=== PATIENT | female | born 1975 | race Caucasian/White ===

== ENCOUNTER 2025-04-19 18:29 | Emergency (ER) | payer OTHER ==
[2025-04-19 20:01] VITALS: BP 135/73; PULSE 61; RESP 16; TEMP 98.3; O2SAT 98
[2025-04-19] MEDS: IBUPROFEN 600 MG TABLET PO ONE (20:01)
[2025-04-19] MEDS: ACETAMINOPHEN 500 MG TABLET PO ONE (20:03)
== END 2025-04-19 20:50 ==
LOC: EMS 18:33
DX: S63.616A Unspecified sprain of right little finger, initial encounter (principal); I10 Essential (primary) hypertension; W23.2XXA Caught, crushed, jammed or pinched between a moving and stationary object, initial encounter; Y93.89 Activity, other specified; Y92.89 Other specified places as the place of occurrence of the external cause; Y99.8 Other external cause status
CPT/HCPCS: 99283